=== PATIENT | female | born 1955 | race Caucasian/White ===

== ENCOUNTER → 2017-04-12 | Day surgery (SDC) | payer OTHER ==
[2017-03-31 10:37] VITALS: Ht 157.5 cm; Wt 81.8 kg
[~2017-04-12] VITALS: Ht 157.5 cm; Wt 81.8 kg
[~2017-04-12] MED LIST: ADVIN25/60 INH; CTP/1 PO; LIDOCAINE HCL 2% 2 ML VIAL (20MG/ML) ONE; LOSA100T65 PO; METO50TA16 PO; MIDAZOLAM HCL 1 MG/ML 2ML VIAL ONE; ONDANSETRON INJ 2 MG/ML 2 ML VIAL ONE; PROPOFOL IV EMULSION 10 MG/ML 20 ML VIAL IV ONE; SIMV20TA2 PO; VNTHFA/IN INH
--- NOTE | 2017-04-12 08:37 | Endo History and Physical ---
History & Physical Date of Service: Apr 12, 2017. Chief Complaint: abdominal pain and diarrhea Referring Physician: Dr. Acosta History of Present Illness 61 yo CF who presents for colonoscopy secondary to abdominal pain and diarrhea. Past Surgical History Hx Cardiac Surgery: No Hx Internal Defibrillator: No Hx Pacemaker: No Hx Abdominal Surgery: Yes ([facility], TUBAL LIGATION, JOSELO) Hx of Implantable Prosthesis: No Hx Post-Op Nausea and Vomiting: No Hx Cancer Surgery: No Hx Thoracic Surgery: No Hx Orthopedic: No Hx Urinary Tract Surgery: No Family History None Social History Smoking Status: Never Smoker Hx Substance Use: No Hx Alcohol Use: No Allergies Coded Allergies: Levofloxacin (Verified Adverse Reaction, Mild, GI INTOLERANCE, 03/31/17) Lisinopril (Verified Adverse Reaction, Mild, COUGH, 03/31/17) Current Medications Reported Home Medications Medications Dose Route/Sig Max Daily Dose Days Date Category Zocor (Simvastatin) 20 Mg Tab 20 Mg PO QPM 03/31/17 Reported Advair Diskus 250/50 60 Dose (Fluticasone Prop/Salmeterol) 1 Ea Aerp 1 Puff INH BID PRN 03/31/17 Reported Ventolin Hfa (Albuterol) 200 Puffs/34727 Mcg Aers 2-4 Puffs INH Q6H PRN 03/31/17 Reported Catapres (Clonidine Hcl) 0.1 Mg Tab 0.1 Mg PO BID 03/31/17 Reported Cozaar (Losartan Potassium) 100 Mg Tab 100 Mg PO QPM 03/31/17 Reported Lopressor (Metoprolol Tartrate) 50 Mg Tab 50 Mg PO TID 03/31/17 Reported Vital Signs Weight (Kilograms): 81.82 Height (Feet): 5 Height (Inches): 2 Date Time Temp Pulse Resp B/P (MAP) Pulse Ox O2 Delivery O2 Flow Rate FiO2 04/12/17 08:34 36 75 18 179/86 (117) 98 Room Air Physical Exam General Appearance: WD/WN, no apparent distress Respiratory/Chest: Auscultation: breath sounds normal Cardiovascular: Heart Auscultation: RRR Abdomen: Bowel Sounds: normal Inspection & Palpation: soft, non-distended, no tenderness, guarding & rebound Assessment and Plan Assessment: 61 yo CF who presents for colonoscopy secondary to abdominal pain and diarrhea. Plan: Proceed with colonoscopy.
--- NOTE | 2017-04-12 09:38 | Discharge Instructions ---
Endoscopy Patient Instructions Date / Procedure(s) Performed Apr 12, 2017. Colonoscopy Allergy Information Coded Allergies: Levofloxacin (Verified Adverse Reaction, Mild, GI INTOLERANCE, 03/31/17) Lisinopril (Verified Adverse Reaction, Mild, COUGH, 03/31/17) Discharge Date / Findings Apr 12, 2017. Random colon biopsies Stool aspirate collected Internal hemorrhoids Medication Instructions OK to resume all medications today as prescribed Reported Home Medications Medications Dose Route/Sig Max Daily Dose Days Date Category Zocor (Simvastatin) 20 Mg Tab 20 Mg PO QPM 03/31/17 Reported Advair Diskus 250/50 60 Dose (Fluticasone Prop/Salmeterol) 1 Ea Aerp 1 Puff INH BID PRN 03/31/17 Reported Ventolin Hfa (Albuterol) 200 Puffs/36775 Mcg Aers 2-4 Puffs INH Q6H PRN 03/31/17 Reported Catapres (Clonidine Hcl) 0.1 Mg Tab 0.1 Mg PO BID 03/31/17 Reported Cozaar (Losartan Potassium) 100 Mg Tab 100 Mg PO QPM 03/31/17 Reported Lopressor (Metoprolol Tartrate) 50 Mg Tab 50 Mg PO TID 03/31/17 Reported Provider Instructions Activity Restrictions - No exercising or heavy lifting for 24 hours. - Do not drink alcohol the day of the procedure. - Do not drive a car or operate machinery until the day after the procedure. - Do not make any important decisions or sign important papers in 24 hours after the procedure. Following Day: - Return to full activity which may include returning to work/school. Diet Start your diet with liquids and light foods (jello, soup, juice, toast). Then eat your usual diet if not nauseated. Treatment For Common After Affects For mild abdominal pain, bloating, or excessive gas: - Rest - Eat lightly - Lie on right side Follow-Up Information Follow-up with Dr. Acosta as scheduled Anesthesia Information What You Should Know You have had a procedure that required some medicine to reduce anxiety and discomfort. This treatment is called moderate sedation. After receiving the treatment, you may be sleepy, but you will be able to breathe on your own. The effects of the treatment may last for several hours. Follow these instructions along with Activity/Diet recommendations noted above: * Do NOT do anything where dizziness or clumsiness would be dangerous. * Rest quietly at home today, then you can be up and about tomorrow. * Have a responsible person stay with you the rest of today. * You may have had an I.V. today. If so, you may take the dressing off later today. Recommendations Call your doctor if: * Trouble breathing * Continuous vomiting for more than 24 hours * Temperature above 101 degrees * Severe abdominal pain or bloating * Pain not relieved by pain medicine ordered * There is increased drainage or redness from any incision * A large amount of rectal bleeding greater than 2-3 tablespoons. (If you had a polyp/s removed or have hemorrhoids, a small amount of blood - from the rectum is to be expected.) * You have any unanswered questions or concerns. IN THE EVENT OF A SERIOUS EMERGENCY, GO TO THE NEAREST EMERGENCY ROOM Your discharge instructions were prepared by provider Francisco Giraldo. Patient Instructions Signature Page Gricel Brennan Patient (or Guardian) Signature/Date: I have read and understand the instructions given to me by my caregivers. Caregiver/RN/Doctor Signature/Date: The above-named patient and/or guardian has received patient instructions on this date. + Original Patient Signature Page (only) stays with chart. Please make copy for patient.
--- NOTE | 2017-04-12 09:41 | GI REPORT ---
Procedure Date: 04/12/2017 8:47 AM Procedure: Colonoscopy Indications: Chronic diarrhea Medicines: Monitored Anesthesia Care Complications: No immediate complications. Estimated Blood Loss: Estimated blood loss: none. Procedure: Pre-Anesthesia Assessment: - Prior to the procedure, a History and Physical was performed, and patient medications and allergies were reviewed. The patient's tolerance of previous anesthesia was also reviewed. The risks and benefits of the procedure and the sedation options and risks were discussed with the patient. All questions were answered, and informed consent was obtained. Prior Anticoagulants: The patient has taken no previous anticoagulant or antiplatelet agents. ASA Grade Assessment: II - A patient with mild systemic disease. After reviewing the risks and benefits, the patient was deemed in satisfactory condition to undergo the procedure. After I obtained informed consent, the scope was passed under direct vision. Throughout the procedure, the patient's blood pressure, pulse, and oxygen saturations were monitored continuously. The scope was introduced through the anus and advanced to the terminal ileum. The colonoscopy was performed without difficulty. The patient tolerated the procedure well. The quality of the bowel preparation was good. The terminal ileum, ileocecal valve, appendiceal orifice, and rectum were photographed. Findings: Non-bleeding internal hemorrhoids were found during retroflexion. The hemorrhoids were small. Several random biopsies were obtained with cold forceps for histology in the entire colon. Fluid aspiration for cytology was performed in the entire colon. Impression: - Non-bleeding internal hemorrhoids. - Several random biopsies were obtained in the entire colon. - Fluid aspiration was performed. Recommendation: - Resume previous diet. - Continue present medications. - Repeat colonoscopy for surveillance based on pathology results. - Return to primary care physician as previously scheduled. Francisco Giraldo, 04/12/2017 9:40:56 AM This report has been signed electronically. Note Initiated On: 04/12/2017 8:47 AM I attest to the content of the Intraoperative Record and orders documented therein, exceptions below
--- NOTE | 2017-04-12 10:11 | Anesthesiology Progress Note ---
Anesthesia Post Op Note Date & Time Apr 12, 2017 at 10:11 Vital Signs Pain Intensity: 0 Vital Signs Past 12 Hours Date Time Temp Pulse Resp B/P (MAP) Pulse Ox O2 Delivery O2 Flow Rate FiO2 04/12/17 09:47 74 16 164/93 (116) 96 Room Air 04/12/17 09:33 70 16 124/75 (91) 97 Room Air 04/12/17 08:34 36 75 18 179/86 (117) 98 Room Air Notes Mental Status: alert / awake / arousable, participated in evaluation Pt Amnestic to Procedure: Yes Nausea / Vomiting: adequately controlled Pain: adequately controlled Airway Patency, RR, SpO2: stable & adequate BP & HR: stable & adequate Hydration State: stable & adequate Anesthetic Complications: no major complications apparent
[2017-04-12 10:36] VITALS: BP 164/89; PULSE 66; O2SAT 97
== END | disposition home or self-care (01) ==
LOC: C.GI 08:04
PROVIDERS: ATTEND Internal Medicine
DX: K52.9 Noninfective gastroenteritis and colitis, unspecified (principal); R10.9 Unspecified abdominal pain; K64.8 Other hemorrhoids; I10 Essential (primary) hypertension; J45.909 Unspecified asthma, uncomplicated; E66.9 Obesity, unspecified; Z90.49 Acquired absence of other specified parts of digestive tract; Z98.51 Tubal ligation status; Z88.1 Allergy status to other antibiotic agents; Z68.33 Body mass index [BMI] 33.0-33.9, adult